=== PATIENT | male | born 1950 | race Caucasian/White ===

== ENCOUNTER 2025-02-03 08:30 | Outpatient (RCR) | payer MEDICARE, OTHER, SELFPAY ==
--- NOTE | 2025-01-04 09:56 | HP.PTEVAL_ITS ---
Patient's Visit Information Visit Information Visit Information: JACINTO SAMSON is a 74 year old M referred to Physical Therapy by Dr. Andrew Callahan MD with a diagnosis of NECK PAIN AND LUMBAR RADICULOPATHY. Date of Evaluation: 01/04/25 Physical Therapist: Cristóbal Olivia, PT, Cert MDT, OCS Visit Plan Frequency: 2x /Week Duration: 4 Weeks Plan: PT INTERVENTIONS CERVICAL /LUMBAR ROM ,DLS ,POSTURAL EX'S E FLEXABILITY AND BALANCE PROGRAM Subjective Subjective: This 74 y/o male presents to physical therapy with neck pain adn lumbar radiculopathy. Patient has neck pain 2006 C1 fx and lumbar radiculopathy for several years. Patient cervical pain symmetrical with tightness . Aggravating factors turning ,looking looking overhead. Alleviating factors massage. Denies paresthesia/tingling -. Patient GURROLA/dizziness/nausea/tinnitus. Lumbar pain symmetrical left leg.. Aggravating factors standing ,walking extended ,sitting. Alleviating factors teylonal. No imaging. Coughing/sneezing-. Bowel/bladder-.No abnoram night pain. Patient sees chiropractor adn and massage.Patient condition affects QOL and function . SOCIAL: VOCATION: retired Pain Left Back: Pain Intensity (Out of 10): 3 Pain Intensity Range: 5 Bilateral Back: Pain Intensity (Out of 10): 3 Pain Intensity Range: 5 Bilateral Neck: Pain Intensity (Out of 10): 2 Pain Intensity Range: 4 Objective Objective: POSTURE:mild forward posture ,hips/knees flexed GAIT: reciprocal pattern PALPATION: tender UT /levtor NEURO: denies paresthesia/tingling , reflexes C5-6-7 1/3 ,L3-4,L4-5,L5-S1 1/3 CERVICAL ROM: flexion 25% loss ,extension /lateral flexion/rotation 50% loss AROM: BUE WFL MMT: RTC deltoid right 3+/5 weak h/o tear, left 4/5 except shoulder 4-/5 LUMBAR ROM: flexion 25% loss ,extension 50% loss ,side glides 50% loss FLEXABILITY: hamstrings mod tight Special Tests C/S Radiculapathy - Left Upper limb tension test: Negative C/S Radiculapathy - Right Upper limb tension test: Negative C/S Radiculapathy - Left Spurlings: Negative C/S Radiculapathy - Right Spurlings: Negative C/S Radiculapathy - Left Cervical distraction: Negative C/S Radiculapathy - Right Cervical distraction: Negative C/S Radiculapathy - Left Relief test: Negative Sharp Geovanny: Negative Vertebral Artery Test: Negative Alar Ligament Test: Negative L/S Slump test left side: Negative L/S Slump test right side: Negative L/S Left Straight Leg Raise: Negative L/S Right Straight Leg Raise: Negative Balance/Special Test Scores CATSIB Score (Max score 120 seconds): 79 Oswestry Low Back Score: 20 Goals Goal 1:: Patient to be I with for strengthening and balance Goal Time Frame: 4-6 Weeks Goal 2:: Patient to improve cervical ROM and lumbar ROM for function of recovery for ADLS and driving Goal Time Frame: 4-6 Weeks Goal 3:: Patient to improve back oswestry by 5 points to improve QOL and function Goal Time Frame: 4-6 Weeks Goal 4:: Patient to demonstrate 50% improvement with less pain and improved function Goal Time Frame: 4-6 Weeks Goal 5:: Patient to improve CATSIBE by 5 points to improve balance Goal Time Frame: 4-6 Weeks Rehabilitation Potential Rehabilitation Potential: Good Anticipated Interventions Patient/Client Instruction: Educate patient on: Condition and Plan of Care For the Purpose of:: To decrease pain, To increase ROM, To improve muscle performance and motor function, To improve ability to perform ADL's, To increase tolerance to activity/condition/position, To improve ability of physical actions for home/community/work/leisure, To improve health of tissue, To decrease soft tissue restriction, To increase flexibility/ROM, To improve endurance and To improve balance Therapeutic Exercise to Include: Strength training, Endurance training, Balance training, Postural training, Flexibilty training and Dynamic Lumbar Stabilization For the Purpose of:: To decrease pain, To increase ROM, To improve muscle performance and motor function, To improve ability to perform ADL's, To increase tolerance to activity/condition/position, To improve ability of physical actions for home/community/work/leisure, To improve health of tissue, To decrease soft tissue restriction, To increase flexibility/ROM, To improve endurance and To improve tolerance to ADL's Text: Thank you for the opportunity to evaluate your patient. For Medicare and Medicare HMO plans, please review the plan of care and approve it. It will need to be FAXED BACK to us at [phone] for Medicare purposes. For Medicare only, by signing this I certify the plan of care. Please let me know if there are questions or concerns regarding this plan of care. Physician Signature: Dat e:
--- NOTE | 2025-02-03 09:02 | HP.PTDCSUM ---
Discharge Summary D/C summary: It has been my pleasure to treat JACINTO SAMSON referred by Dr. Andrew Callahan MD, with the diagnosis of NECK PAIN AND LUMBAR RADICULOPATHY for a total of 9 visit(s). Discharge Date: 02/03/25 Please see the following information for a summary of their discharge status. Subjective Subjective: Doing well and legs are stronger Pain Left Back: Pain Intensity (Out of 10): 3 Bilateral Back: Pain Intensity (Out of 10): 0 Bilateral Neck: Pain Intensity (Out of 10): 0 Overall Improvement % Improvement: 90 Objective Objective/Function: POSTURE:mild forward posture ,hips/knees flexed GAIT: reciprocal pattern PALPATION: tender UT /levtor NEURO: denies paresthesia/tingling , reflexes C5-6-7 1/3 ,L3-4,L4-5,L5-S1 1/3 CERVICAL ROM: flexion 25% loss ,extension /lateral flexion/rotation 50% loss AROM: BUE WFL MMT: RTC deltoid right 3+/5 weak h/o tear, left 4/5 except shoulder 4-/5 LUMBAR ROM: flexion 25% loss ,extension 50% loss ,side glides 25% loss FLEXABILITY: hamstrings mod tight Goals Goal 1:: Patient to be I with for strengthening and balance Goal Progress: Goal Met Goal 2:: Patient to improve cervical ROM and lumbar ROM for function of recovery for ADLS and driving Goal Progress: Goal Met Goal 3:: Patient to improve back oswestry by 5 points to improve QOL and function Goal Progress: Goal Met Goal 4:: Patient to demonstrate 50% improvement with less pain and improved function Goal Progress: Goal Met Goal 5:: Patient to improve CATSIBE by 5 points to improve balance Goal Progress: Goal Met Plan Plan: D/C to HEP D/C Information Discharge Comments: HEP d/c sentence: If there are questions or concerns regarding this patient's physical therapy, please feel free to call me at [phone]. Thank you for the referral of this patient. Sincerely, Cristóbal Olivia, PT, Cert MDT, OCS Balance/Gait/Functional tests Balance/Special Test Scores CATSIB Score (Max score 120 seconds): 79 Oswestry Low Back Score: 20 Improvement % Improvement: 90
== END 2025-02-03 19:00 | disposition home or self-care (01) ==
LOC: PT 08:30
PROVIDERS: PCP Family Medicine; Referring Provider Family Medicine; Visit Provider Family Medicine
DX: M54.16 Radiculopathy, lumbar region (principal); M54.2 Cervicalgia
CPT/HCPCS: 97110; 97162; 97530